=== PATIENT | female | born 1965 | race Two or more races ===

== ENCOUNTER → 2016-09-21 09:42 | Day surgery (SDC) | payer MEDICAID ==
[~2016-09-21] VITALS: Ht 345.4 cm; Wt 80.3 kg
--- NOTE | ~2016-09-21 | OP ---
PATIENT NAME: CAROLYN LANGFORD MEDICAL RECORD: [id number] :69 LOCATION:[facility] ADMISSION DATE: SURGEON: PAUL MATIAS DO OPERATION DATE: 09/21/16 PROCEDURE: Esophagogastroduodenoscopy with biopsies. INDICATION: Epigastric pain. SCOPE: Olympus video gastroscope. MEDICATIONS: Propofol 150 milligrams IV per anesthesia. ESTIMATED BLOOD LOSS: Minimal. COMPLICATIONS: None. FINDINGS: Informed consent was given. The patient was made comfortable with the above medication. After reaching an adequate level of sedation by slow IV push, the patient was placed on her left side. The endoscope was then advanced under direct visualization through the mouth to the second portion of the duodenum. The upper, middle, and lower thirds of the esophagus appeared normal. The gastroesophageal junction appeared normal without evidence of esophagitis or ulceration. The endoscope was advanced beyond the gastroesophageal junction into the stomach and retroflexed to view the cardia where a diminutive sliding hiatal hernia was present. In the fundus and body of the stomach there were multiple small and flat benign appearing fundic gland type polyps, likely related to antacid therapy. A single biopsy was taken of one to confirm this. As the endoscope was advanced to the antrum and prepyloric region, there was patchy areas of erythema and granularity consistent with gastritis. Random biopsies were taken from the antrum and incisura to submit for histology and to rule out Helicobacter-pylori. The endoscope was advanced beyond the pylorus into the duodenal bulb and second portion of the duodenum which appeared normal. The scope was then withdrawn from the patient. The patient tolerated the procedure well. There were no complications. IMPRESSIONS: 1. Diminutive sliding hiatal hernia. 2. Multiple benign appearing fundic gland type gastric polyps, biopsies taken. 3. Erythema and granularity in patchy distribution in antrum and prepyloric region, biopsies taken. PLAN/RECOMMENDATIONS: 1. Discharge home when recovery parameters are met. 2. Gastroesophageal reflux disease diet and reflux precautions. 3. Continue current medications, including omeprazole 20 milligrams by mouth twice a day. 4. Will schedule a gastric emptying study regarding the pain with eating and epigastric pain. 5. Further recommendations to follow gastric emptying study. OPERATIVE REPORT [id number] CAROLYN LANGFORD PAUL MATIAS DO CC: [id number] DICTATION DATE: 09/21/16 1400 TOPSTITCHER ZIGZAG: DM 09/22/16 1435 [facility]P [facility] [place] 09/21/16 [facility] [address] [facility] [place] [address]
[~2016-09-21 09:42] MED LIST: AMITRIPTYLINE H50 MG PO; MOBIC7.5 MG PO; OXYBUTYNIN CHLOR5 MG PO; PRILOSEC20 MG PO; PROAIR HFA8.5 GM INH
[2016-09-21 10:37] VITALS: BP 109/72; Ht 345.4 cm; Wt 80.3 kg
[2016-09-21 11:24] LABS: HEMATOCRIT 39.1 % (36.0-48.0); MCH 30.6 pg (26.0-34.0); MCHC 33.2 g/dL (31.0-37.0); MEAN PLATELET VOLUME 9.8 fL (7.4-10.4); RBC 4.25 10x6/uL (4.00-5.40); RDW 13.3 % (11.5-14.5); WBC 9.2 10x3/uL (4.8-10.8)
--- NOTE | 2016-09-21 13:50 | NUR ---
1350 PT ESCORTED OUT BY VOLUNTEER, ACCOMPANIED BY AND GRANDDAUGHTER.
== END | disposition home or self-care (01) ==
LOC: D.OPS 09:42
PROVIDERS: Internal Medicine Gastroenterology
DX: R10.13 Epigastric pain (principal); I10 Essential (primary) hypertension; E11.9 Type 2 diabetes mellitus without complications; K21.9 Gastro-esophageal reflux disease without esophagitis; K44.9 Diaphragmatic hernia without obstruction or gangrene; K31.7 Polyp of stomach and duodenum; Z01.812 Encounter for preprocedural laboratory examination

== ENCOUNTER 2016-10-23 11:47 | Day surgery (SDC) | payer MEDICAID ==
[~2016-10-23] VITALS: Ht 142.2 cm; Wt 80.5 kg
[2016-10-23 13:03] LABS: BASOPHILS 0.1 % (0-2); HEMATOCRIT 40.7 % (36.0-48.0); HEMOGLOBIN 13.7 g/dL (12-16); IMMATURE GRANULOCYTES 0.1 % (0-5); LYMPHOCYTES 30.4 % (15-50); MCH 30.4 pg (26.0-34.0); MCHC 33.7 g/dL (31.0-37.0); MCV 90.2 fL (80.0-100.0); MEAN PLATELET VOLUME 9.6 fL (7.4-10.4); MONOCYTES 6.7 % (2-11); NEUTROPHILS 61.7 % (40-80); PLATELET COUNT 264 10x3/uL (130-400); RBC 4.51 10x6/uL (4.00-5.40); RDW 13.1 % (11.5-14.5); WBC 8.6 10x3/uL (4.8-10.8)
[2016-10-23 13:20] LABS: CALC OSMOLALITY 277 mosm/kg (275-300); CALCIUM 8.6 mg/dL (8.5-10.1); CHLORIDE - SERUM 104 mmol/L (98-107); CREATININE - SERUM 0.7 mg/dL (0.6-1.3); GLUCOSE 116 mg/dL (74-106); POTASSIUM - SERUM 3.9 mmol/L (3.5-5.1); SODIUM 139 mmol/L (136-145); UREA NITROGEN 10 mg/dL (7-18); eGFR NON AFRICAN AMERICAN > 90 mL/min (90-120)
[2016-10-23] MEDS ORDERED: LISINOPRIL10 MG PO (14:20)
[2016-10-23 14:24] VITALS: BP 126/76; Ht 142.2 cm; Wt 80.5 kg
--- NOTE | 2016-10-23 16:55 | NUR ---
PATIENT DRESSED IN PERSONAL CLOTHING, DISCHARGE INSTRUCTIONS REVIEWED WITH PATIENT AND SPOUSE, PATIENT DISCHARGED HOME VIA WHEELCHAIR TO PRIVATE VEHICLE WITH SPOUSE
--- NOTE | 2016-10-24 16:20 | OP ---
PATIENT NAME: CAROLYN LANGFORD MEDICAL RECORD: [id number] :69 LOCATION:[facility] ADMISSION DATE: SURGEON: PAUL MATIAS DO DATE OF OPERATION: 10/23/2016 PROCEDURE: Colonoscopy with reduced services due to incomplete passage of the endoscope due to poor prep. INDICATIONS FOR PROCEDURE: Change in bowel habits with alternating constipation and diarrhea. SCOPE: Olympus video pediatric colonoscope. MEDICATIONS: Propofol 350 mg IV per anesthesia. ESTIMATED BLOOD LOSS: Minimal. COMPLICATIONS: None. FINDINGS: Informed consent was given. The patient was made comfortable with the above medication. After reaching an adequate level of sedation by slow IV push, the patient was placed on her left side. A digital rectal examination was performed and was normal. The endoscope was then advanced under direct visualization through the rectum to the sigmoid colon. The endoscope could not be passed beyond the sigmoid colon due to a large amount of stool within an inadequate prep. The entire mucosa from the rectum to the sigmoid colon appeared abnormal with what looked like very superficial ulcerations, loss of vascular pattern, and a smooth mucosal surface. These features can be consistent with ulcerative colitis. Multiple random biopsies were taken and stool was collected for further studies including a culture, fecal white blood cells count and a fecal calprotectin. The scope was withdrawn from the patient. The patient tolerated the procedure well and there were no complications. IMPRESSION: Abnormal mucosa with loss of vascularization and superficial ulceration involving the sigmoid colon to the rectum. The proximal extent of these findings are unknown as the scope could not be passed due to significant stool burden. PLAN AND RECOMMENDATIONS: 1. Discharge home when recovery parameters are met. 2. Continue current diet and medications while awaiting biopsy results. 3. Schedule a gastric emptying study regarding the nausea, abdominal pain, and bloating associated with eating. 4. If biopsies are consistent with ulcerative colitis, will initiate sulfasalazine and mesalamine therapy. 5. Consider repeating colonoscopy with GoLYTELY prep. 6. Further recommendations to follow results of biopsies and labs collected. I will also add a CRP level from blood work. TRANSINT:[id number] Voice Confirmation ID: [id number] DOCUMENT ID: [id number] OPERATIVE REPORT [id number] CAORLYN LANGFORD PAUL MATIAS DO at 2057 CC: [id number] DICTATION DATE: 10/23/16 1519 VIDEO GAME DESIGNER: 10/23/162058 [facility] 10/23/16 [id number] [place] [address]
== END 2016-10-23 16:55 | disposition home or self-care (01) ==
LOC: D.OPS 11:47
PROVIDERS: Anesthesiology
DX: K63.3 Ulcer of intestine (principal); K52.9 Noninfective gastroenteritis and colitis, unspecified; Z01.812 Encounter for preprocedural laboratory examination

== ENCOUNTER → 2016-10-26 11:12 | Outpatient (CLI) | payer MEDICAID ==
[2016-10-23 14:24] VITALS: BMI 39.7
[~2016-10-26 11:12] MED LIST changes: +LISINOPRIL10 MG PO
== END | disposition home or self-care (01) ==
LOC: D.NM 11:12
DX: R10.13 Epigastric pain (principal); R11.0 Nausea; R14.0 Abdominal distension (gaseous)